=== PATIENT | male | born 1970 | race Caucasian/White ===

== ENCOUNTER → 2017-06-30 | Outpatient (POV) | payer OTHER, SELFPAY | PROVIDERS: Family Provider Emergency Medicine; PCP Emergency Medicine; Visit Provider Specialist | DX: G40.909 Epilepsy, unspecified, not intractable, without status epilepticus (principal); J32.4 Chronic pansinusitis; Z22.322 Carrier or suspected carrier of Methicillin resistant Staphylococcus aureus; S32.049S Unspecified fracture of fourth lumbar vertebra, sequela | CPT/HCPCS: 95819 ==

== ENCOUNTER → 2018-04-11 08:36 | Outpatient (CLI) | payer OTHER, SELFPAY ==
[2018-04-15 10:57] LABS: Levetiracetam (Keppra) 13.9 ug/mL (10.0-40.0)
== END ==
PROVIDERS: Visit Provider Nurse Practitioner Family
DX: G40.909 Epilepsy, unspecified, not intractable, without status epilepticus (principal)
CPT/HCPCS: 36415; 80177

== ENCOUNTER 2021-03-04 12:09 | Emergency (ER) | payer BC, SELFPAY ==
[2021-03-04 12:40] VITALS: BP 142/93; PULSE 89; RESP 19; TEMP 36.9; O2SAT 100; BMI 40.0
--- NOTE | 2021-03-04 12:42 | XR_ITS ---
PROCEDURE INFORMATION: Exam: XR Lumbosacral Spine Exam date and time: 03/04/2021 12:42 PM Age: 50 years old Clinical indication: Injury or trauma; Fall; Blunt trauma (contusions or hematomas); Additional info: Fell down stairs TECHNIQUE: Imaging protocol: XR of the lumbosacral spine. Views: 2 or 3 views. COMPARISON: No relevant prior studies available. FINDINGS: Bones/joints: There is an approximately 50% compression deformity of L4 present. The lumbar spine demonstrates mild degenerative changes at multiple levels. Mild compression deformity of the superior endplates of T12 and L1 are present, ages are indeterminate. The facet joints demonstrate mild degenerative hypertrophy and sclerosis. Soft tissues: Unremarkable. Gastrointestinal tract: A large amount of stool is noted throughout the colon. IMPRESSION: 1. There is an approximately 50% compression deformity of L4 present. 2. The lumbar spine demonstrates mild degenerative changes at multiple levels. 3. Mild compression deformity of the superior endplates of T12 and L1 are present, ages are indeterminate. 4. A large amount of stool is noted throughout the colon.
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
[2021-03-04 14:19] VITALS: BP 142/93; PULSE 89; RESP 19; TEMP 36.9; O2SAT 100
== END 2021-03-04 14:37 | disposition home or self-care (01) ==
PROVIDERS: Emergency Provider Nurse Practitioner; PCP Emergency Medicine
DX: M54.5 Low back pain (principal); W10.9XXA Fall (on) (from) unspecified stairs and steps, initial encounter; Y92.019 Unspecified place in single-family (private) house as the place of occurrence of the external cause
CPT/HCPCS: 72100; 96372; 99202; G0463

== ENCOUNTER 2021-10-29 09:39 | Emergency (ER) | payer SELFPAY ==
--- NOTE | 2021-10-29 10:42 | HMH.EDUTC ---
[facility] [place] Clinical Impression: Viral syndrome Sinusitis Qualifiers: Sinusitis location: unspecified location Chronicity: acute Recurrence: non-recurrent Qualified Code(s): J01.90 - Acute sinusitis, unspecified Disposition: Home, Self-Care Condition on Discharge: Good Instructions: DI for Sinusitis, DI for Viral Syndrome Additional Instructions: Drink plenty of fluids. Take tylenol or ibuprofen for pain or fever. Take the medications as directed. Follow up with your regular doctor. GO TO THE ER FOR ANY WORSENING SYMPTOMS He refuses a covid-19 test. I encourage you to get tested for covid-19, but it is your choice to not to. His work excuse needs to apply to for 10/26/2021 also. This is the same episode of sickness. Prescriptions: Amoxicillin/Potassium Clav [Amox-Clav 875-125 mg Tablet] 1 tab PO BID #20 tab Transmission Status: Received by [facility] Benzonatate [Benzonatate 100mg cap] 100 mg PO TIDP PRN #30 cap PRN Reason: Cough Transmission Status: Received by [facility] methylPREDNISolone [Medrol] 4 mg PO DIRECTED 6 Days #21 packet Transmission Status: Received by [facility] Referrals: Brooks Duke MD [Primary Care Provider] - Forms: Work/School Release Time of Disposition: 11:01 Medical Decision Making - Medical Records Medical records reviewed: No: I reviewed the patient's medical records. - Hemal Inquiry Pt receiving controlled substance: No Vital Signs: 10/29/21 10:44 10/29/21 11:13 Temperature 99.2 F 99.2 F Temperature Source Oral Pulse Rate 97 H Pulse Rate [Left] 97 H Respiratory Rate 18 18 Blood Pressure 157/99 H Blood Pressure [Right Arm] 157/99 H Blood Pressure Mean [Right Arm] 118 02 Sat by Pulse Oximetry 97 - Lab Data Lab results reviewed: Yes: I reviewed the patient's lab results. [facility] [place] - General Stated complaint: body aches,headache,sore throat,cough Time Seen by Provider: 10/29/21 10:42 - History of Present Illness Provider Complaint: He states that for the past 3 days he has had sore throat, sinus congestion, body aches, chills and he has felt bad. He refuses any covid or flu testing. He states that he gets this same symptoms every year at this time and he has to take antibiotics to get better. - Related Data Previous Rx's Medication Instructions Recorded Cyclobenzaprine HCl [Flexeril 10mg 10 mg PO TID PRN #15 tab 03/04/21 tablet] Etodolac 200 mg PO Q8HP PRN #20 cap 03/04/21 levetiracetam 500 mg 1,000 mg PO BID #360 tab NS 03/26/21 tablet,extended release 24 hr Amoxicillin/Potassium Clav 1 tab PO BID #20 tab 10/29/21 [Amox-Clav 875-125 mg Tablet] Benzonatate [Benzonatate 100mg 100 mg PO TIDP PRN #30 cap 10/29/21 cap] methylPREDNISolone [Medrol] 4 mg PO DIRECTED 6 Days #21 10/29/21 packet Allergies Allergy/AdvReac Type Severity Reaction Status Date / Time No Known Allergies Allergy Verified 03/27/21 07:36 [facility] History - Hepatitis A Screen Attestation statement:: This patient has been screened for Hepatitis A risk factors. I have reviewed the patient's past medical history: Yes Medical History: Reports:: MRSA, Seizures Denies:: Cancer, Diabetes Mellitus Type 1, Diabetes Mellitus Type 2 Other Surgeries: Yes: No Previous Surgery, Colonoscopy, Other Amputation: No Fractures: No Comment: eye-bilateral, ear - Social History Smoking Status: Current every day smoker Tobacco Type: cigarettes # Packs/Day (cigarettes): 1 #Yrs smoked (if former smoker): 28 Alcohol Intake: never Alcohol Intake Frequency:: a few times a month Substance Use Type: denies use Occupational Status: other Housing: house Household Members: family Family Hx:: Cancer, Coronary Artery Disease, Diabetes, Heart Attack, Stroke, Hypertension ROS Obtained: Yes All systems reviewed & no additional complaints - Constitutional Constitutional: Reports as per HPI - Eyes
[2021-10-29 10:44] VITALS: BP 157/99; PULSE 97; RESP 18; TEMP 37.3; O2SAT 97; BMI 41.1
[2021-10-29 11:13] VITALS: BP 157/99; PULSE 97; RESP 18; TEMP 37.3
== END 2021-10-29 11:14 | disposition home or self-care (01) ==
PROVIDERS: Emergency Provider Nurse Practitioner Family; PCP Emergency Medicine
DX: B34.9 Viral infection, unspecified (principal); J01.90 Acute sinusitis, unspecified; J02.9 Acute pharyngitis, unspecified; M79.10 Myalgia, unspecified site; G40.909 Epilepsy, unspecified, not intractable, without status epilepticus; F17.210 Nicotine dependence, cigarettes, uncomplicated; Z79.52 Long term (current) use of systemic steroids; Z79.899 Other long term (current) drug therapy; Z86.14 Personal history of Methicillin resistant Staphylococcus aureus infection; Z87.898 Personal history of other specified conditions; Z82.49 Family history of ischemic heart disease and other diseases of the circulatory system; Z80.9 Family history of malignant neoplasm, unspecified; Z83.3 Family history of diabetes mellitus
CPT/HCPCS: 99213; G0463

== ENCOUNTER → 2022-04-04 14:36 | Outpatient (CLI) | payer BC, SELFPAY | PROVIDERS: PCP Emergency Medicine; Visit Provider Specialist | DX: G47.33 Obstructive sleep apnea (adult) (pediatric) (principal); R09.02 Hypoxemia; R06.83 Snoring; G40.909 Epilepsy, unspecified, not intractable, without status epilepticus | CPT/HCPCS: G0399 ==

== ENCOUNTER 2022-06-19 13:07 | Emergency (ER) | payer BC, SELFPAY ==
[2022-06-19 13:26] VITALS: BP 147/93; PULSE 70; RESP 18; TEMP 36.8; O2SAT 95; BMI 41.3
--- NOTE | 2022-06-19 14:05 | EXP.UTC ---
Discharge Plan Disposition Patient Disposition: Hospice - Medical Facility Condition: Good Prescriptions Prescriptions: New cyclobenzaprine 10 mg Tablet 10 mg PO BID PRN (Reason: Muscle Spasm) Qty: 20 0RF methylprednisolone 4 mg Tablets,Dose Pack 4 mg PO DIRECTED Qty: 21 0RF No Action levetiracetam 500 mg tablet extended release 24 hr 1,000 mg PO BID Qty: 360 3RF Rx Instructions: Take two tablets twice daily. cyclobenzaprine 10 MG tablet 10 mg PO TID PRN (Reason: Muscle Spasm) Qty: 15 0RF etodolac 200 MG capsule 200 mg PO Q8HP PRN (Reason: Moderate Pain) Qty: 20 0RF benzonatate 100 MG capsule 100 mg PO TIDP PRN (Reason: Cough) Qty: 30 0RF Referrals Follow up/Referrals: Brooks Duke MD [Primary Care Provider] - See instructions Activity Restrictions/Add. Instructions Additional Instructions/Restrictions: Go home and rest. It would be best if you rested tomorrow too. No heavy lifting. No twisting. Take the oral medications as directed. The muscle relaxer (cyclobenzaprine--Flexeril) will make you drowsy, so don't drive or operate heavy machinery after taking it. Follow up with your regular doctor. GO TO THE ER FOR ANY WORSENING SYMPTOMS OR CONCERN, ESPECIALLY BOWEL OR BLADDER ISSUES, SADDLE AREA NUMBNESS, FEVER, ETC Clinical Impressions Clinical Impression: Strain of thoracic back region Stand Alone Forms Stand Alone Forms: Work/School Release Instructions Patient Instructions: Cyclobenzaprine, DI for Thoracic Back Pain, Thoracic Back Pain Discharge ED Provider: Osman Matta [facility] General Stated complaint: Possible pulled chest muscle radiating pain Mode of Arrival: Ambulatory Source of Information: Patient Limitations: No Limitations Time Seen by Provider: 06/19/22 13:53 Description of Symptoms (Recalled from Triage Doc. by RN): pt c/o thoractic pain from lifting HEENT Symptoms (Recalled from RN notes): No Resp Symptoms (Recalled from RN notes): No Skin Symptoms (Recalled from RN notes): No MS Symptoms (Recalled from RN notes): Yes Functional Status (Recalled from RN notes): na History of Present Illness Provider Complaint: He states that for the past 2 days he has had right sided thoracic back pain. He states that it began hurting after he was lifting and moving some heavy things at home. Related Data Previous Rx's Medication Instructions Recorded cyclobenzaprine 10 mg tablet 10 mg PO TID PRN Muscle Spasm #15 03/04/21 tabs etodolac 200 mg capsule 200 mg PO Q8HP PRN Moderate Pain 03/04/21 #20 caps benzonatate 100 mg capsule 100 mg PO TIDP PRN Cough #30 caps 10/29/21 levetiracetam 500 mg 1,000 mg PO BID seizures #360 tabs 03/25/22 tablet,extended release 24 hr cyclobenzaprine 10 mg tablet 10 mg PO BID PRN Muscle Spasm #20 06/19/22 tabs methylprednisolone 4 mg tablets in 4 mg PO DIRECTED #21 tabs 06/19/22 a dose pack Allergies Allergy/AdvReac Type Severity Reaction Status Date / Time No Known Allergies Allergy Verified 04/24/22 14:31 Worker's Comp Is this a Worker's Comp case?: No PFSH PFSH Medical History MRSA (methicillin resistant staph aureus) culture positive Surgical History H/O colonoscopy Family History Other Cancer Coronary artery disease Diabetes Heart attack Hypertension Stroke Social History Smoking Status: Current every day smoker tobacco type: cigarettes packs per day: 1 second hand exposure: No alcohol intake: never counseling provided: none substance use type: denies use current occupational status: other Travel in the last 8 weeks: None household members: family housing: house ROS Obtained: Yes All systems reviewed & no additional complaints except a
[2022-06-19 14:37] VITALS: BP 140/89; PULSE 74; RESP 17; TEMP 36.8; O2SAT 96
== END 2022-06-19 14:38 | disposition hospice, inpatient (51) ==
PROVIDERS: Emergency Provider Nurse Practitioner Family; PCP Emergency Medicine
DX: S29.012A Strain of muscle and tendon of back wall of thorax, initial encounter (principal)
CPT/HCPCS: 99212; G0463

== ENCOUNTER → 2023-03-18 14:24 | Outpatient (CLI) | payer BC, SELFPAY ==
[2023-03-18 16:34] LABS: Chol/HDL Ratio 6.8 (1-3.5); Cholesterol 162 mg/dl (140-200); HDL Cholesterol 24 mg/dl (40-60); Triglycerides 147 mg/dl (30-150); VLDL Cholesterol 29 mg/dL (0-40)
[2023-03-18 16:37] LABS: Alanine Aminotransferase 46 U/L (12-78); Albumin Level 4.1 g/dl (3.5-5.0); Albumin/Globulin Ratio 1.6 (1.1-1.8); Alkaline Phosphatase 87 U/L (38-126); Anion Gap 9.4 mEq/L (5-15); Aspartate Amino Transferase 55 U/L (17-59); Bilirubin,Total 0.9 mg/dl (0.2-1.3); Blood Urea Nitrogen 14 mg/dl (9-20); Calcium 8.8 mg/dl (8.4-10.2); Carbon Dioxide 23 mmol/L (22.0-30.0); Chloride 113 mmol/L (98-107); Estimated Glomerular Filt Rate 102 ml/min (>60); GFR (African American) 123 ML/MIN (>60); Globulin 2.5 g/dL (1.3-3.2); Glucose 99 mg/dl (74-100); Potassium 4.4 mmoL/L (3.5-5.1); Sodium 141 mmol/L (136-145); Total Protein,Serum 6.6 g/dl (6.3-8.2)
[2023-03-18 16:45] LABS: Direct LDL Cholesterol 109.47 mg/dL (100-129)
[2023-03-18 17:07] LABS: Thyroid Stimulating Hormone 1.56 uIU/mL (0.465-4.68)
== END ==
PROVIDERS: PCP Nurse Practitioner Family; Visit Provider Nurse Practitioner Family
DX: Z00.00 Encounter for general adult medical examination without abnormal findings (principal); R53.83 Other fatigue; E66.9 Obesity, unspecified; Z68.41 Body mass index [BMI] 40.0-44.9, adult; Z79.899 Other long term (current) drug therapy
CPT/HCPCS: 36415; 80053; 80061; 84443

== ENCOUNTER 2023-06-20 15:12 | Emergency (ER) | payer BC, SELFPAY ==
[2023-06-20 15:35] VITALS: BP 137/86; PULSE 81; RESP 19; TEMP 36.7; O2SAT 97; BMI 40.0
--- NOTE | 2023-06-20 16:07 | EXP.UTC ---
Discharge Plan Disposition Patient Disposition: Home, Self-Care Condition: Good Prescriptions Prescriptions: New azithromycin [Zithromax Z-Aniceto] 250 mg tablet See Rx Instructions .ROUTE .COMPLEX 5 Days Qty: 6 0RF Rx Instructions: For 250 mg dose pack: take 500 mg today (day 1), then 250 mg for 4 days (days 2-5) benzonatate 100 mg capsule 100 mg PO TID PRN (Reason: cough) Qty: 30 0RF methylprednisolone [Medrol (Aniceto)] 4 mg tablets,dose pack See Rx Instructions .Route .COMPLEX 6 Days Qty: 21 0RF Rx Instructions: taper pack; No Action levetiracetam 500 mg tablet extended release 24 hr 1,000 mg PO BID Qty: 360 3RF Rx Instructions: Take two tablets twice daily. Referrals Follow up/Referrals: Brooks Duke MD [Primary Care Provider] - See instructions Activity Restrictions/Add. Instructions Additional Instructions/Restrictions: *Monitor Temp, Over the counter Motrin or Tylenol as directed/as needed Tylenol every 4 hours and Motrin every 6 hours (as long as your family doctor has told you that you can take it) for fever or pain. and straight to ER if unable to lower temp less than 101.0 after medication given *Warm salt water gargles may help to soothe the throat *Throat Lozenges? *Warm fluids like tea with honey may help to soothe the throat? *Sleep elevated *Humidifier/Vaporizer Take medication as prescribed Follow up IMMEDIATELY for new or worsening symptoms or no Noticeable improvement over the next 48-72 hours. 911 for difficulty breathing or swallowing Clinical Impressions Clinical Impression: Bronchitis Sinusitis Qualifiers: Sinusitis location: unspecified location Chronicity: unspecified Qualified Code(s): J32.9 - Chronic sinusitis, unspecified Stand Alone Forms Stand Alone Forms: Work/School Release Instructions Patient Instructions: DI for Sinusitis, Sinusitis, Acute Bronchitis [place]charge [place] Provider[place] Thais [place] [facility] [place] General Stated complaint: sore throat, lung pain, cough, h/a Mode of Arrival: Ambulatory Source of Information: Patient Limitations: No Limitations Time Seen by Provider: 06/20/23 16:07 Description of Symptoms (Recalled from Triage Doc. by RN): PATIENT C/O CHEST CONGESTION, DRY COUGH, AND SCRATCHY THROAT X 2 DAYS HEENT Symptoms (Recalled from RN notes): Yes Resp Symptoms (Recalled from RN notes): Yes Skin Symptoms (Recalled from RN notes): No MS Symptoms (Recalled from RN notes): No Functional Status (Recalled from RN notes): WNL History of Present Illness Provider Complaint: Patient states that he has been having sinus congestion and pressure, pressure behind his eyes, scratchy throat and chest congestion with cough for several days States that today he was not feeling any better so he came in to get checked out Related Data Previous Rx's Medication Instructions Recorded levetiracetam 500 mg 1,000 mg PO BID seizures #360 tabs 04/21/23 tablet,extended release 24 hr azithromycin 250 mg tablet See Rx Instructions PO .COMPLEX 5 06/20/23 (Zithromax Z-Aniceto) days #6 tabs benzonatate 100 mg capsule 100 mg PO TID PRN cough #30 caps 06/20/23 methylprednisolone 4 mg tablets in See Rx Instructions .Route 06/20/23 a dose pack (Medrol (Aniceto)) .COMPLEX 6 days #21 tabs Allergies Allergy/AdvReac Type Severity Reaction Status Date / Time No Known Allergies Allergy Verified 04/21/23 13:49 Worker's Comp Is this a Worker's Comp case?: No [facility] Disclaimer: The information contained in this section may have been updated after the patient was seen, as this information can be updated by other users. Medical History MRSA (methicillin resistant staph aureus) culture positive Surgical History H/O colonoscopy Family History Other Cance
[2023-06-20 16:15] VITALS: BP 137/86; PULSE 81; RESP 19; TEMP 36.7; O2SAT 97
== END 2023-06-20 16:21 | disposition home or self-care (01) ==
PROVIDERS: Emergency Provider Nurse Practitioner; PCP Emergency Medicine
DX: J20.9 Acute bronchitis, unspecified (principal); J01.90 Acute sinusitis, unspecified; F17.210 Nicotine dependence, cigarettes, uncomplicated
CPT/HCPCS: 99212; 99214; G0463

== ENCOUNTER → 2023-07-25 09:49 | Outpatient (CLI) | payer BC, SELFPAY | LOC: RT 09:50 | PROVIDERS: PCP Nurse Practitioner Family; Visit Provider Nurse Practitioner Family | DX: Z00.00 Encounter for general adult medical examination without abnormal findings (principal); R42 Dizziness and giddiness | CPT/HCPCS: 93225; 93226 ==

== ENCOUNTER → 2023-07-30 14:37 | Outpatient (CLI) | payer BC, SELFPAY ==
--- NOTE | 2023-07-30 | CA_ITS ---
APPROVED REPORT EXAM: Comprehensive 2D, Doppler, and color-flow Echocardiogram Jewel Bearing Driller: Ronit Mota CRT Ht: 6 ft 0 in Wt: 294lbs BSA: 2.51 BP: 134/76 mmHg Indications: Shortness of Breath, BERRY, Smoker 2D Dimensions Left Atrium 4.59 cm LVEF (Garcia's) 53.30 % LVOT 2.09 cm (M/F) 1.5-2.5 LV Volume 138.70 mL EF AP4 57.60 % EF AP2 45.7 % EF BP 53.3 % GL Strain -16.2 % M-Mode Dimensions RVDd 3.72 cm (0.9-2.6) LVDd 5.36 cm (3.5-5.7) Ao Diam 4.64 cm (2.0-3.7) LVDs 3.89 cm (3.5-5.7) IVSd 0.86 cm (0.6-1.1) PWd 0.82 cm (0.6-1.1) EF (Teich) 52.80% FS 27.40% EDV (Teich) 138.90 mL TAPSE 2.04 (<1.7) ESV (Teich) 65.50 mL LV Diastology E Decel Time 219 (160-240 msec) E/A Ratio 0.87 MED E' 5.6 (>= 7 cm/sec) MED A' 7.90 cm/s E'/MED E' Ratio 12.54 (<= 14) LAT E' 9.1 (>= 10 cm/sec) LAT A' 7.30 cm/s E/LAT E' Ratio 7.71 (<= 14) Aortic Valve AoV Peak Raymond. 150.0 (50-130 cm/s) AO Peak GR. 9.00 mmHg Mitral Valve MV E Max Raymond. 70.0 (40-130 cm/s) MV A Velocity 81.0 (40-130 cm/s) E/A Ratio 0.87 MV Decel. Time 219 (160-240 ms) Tricuspid Valve TR P. Velocity 273.00 cm/s RAP Estimate 10.00 mmHg RVSP 39.80 mmHg Left Ventricle The left ventricle is normal size. The left ventricular systolic function is normal. The left ventricular ejection fraction is within the normal range. There is increased LV wall thickness. There is normal LV segmental wall motion. The left ventricular diastolic function is normal. LVEF is 55%. Right Ventricle The right ventricle is not very well-visualized, but grossly appears normal in size and function. Atria The left atrium size is normal. The right atrium size is normal. There is no Doppler evidence of interatrial shunt. Aortic Valve The aortic valve opens well. There is no aortic valvular stenosis. No aortic regurgitation is present. Mitral Valve The mitral valve leaflets are mildly thickened. No evidence of mitral valve stenosis. Trace mitral regurgitation. Tricuspid Valve The tricuspid valve leaflets are thin and pliable Trace tricuspid regurgitation. RVSP is 30 mmHg + RA pressure. Pulmonic Valve The pulmonary valve is normal in structure. Mild pulmonic regurgitation. Great Vessels The aortic root is normal in size. The ascending aorta is borderline dilated, measuring 3.7 cm in diameter. The IVC is not well-visualized. Pericardium There is no pericardial effusion. Other Information Study Quality: Technically Difficult Conclusion Technically difficult study due to poor acoustic windows. Grossly, normal biventricular systolic function. No significant valvular stenosis or regurgitation. RVSP 30 mmHg + RA pressure. Electronically signed by : Carri Sanford MD 08/03/2023 19:49:30
== END ==
PROVIDERS: PCP Nurse Practitioner Family; Visit Provider Nurse Practitioner Family
DX: R06.02 Shortness of breath (principal)
CPT/HCPCS: 93306

== ENCOUNTER 2024-03-11 08:10 | Emergency (ER) | payer BC, SELFPAY ==
[2024-03-11 08:20] VITALS: BP 140/86; PULSE 53; RESP 20; TEMP 36.8; O2SAT 98; BMI 40.0
--- NOTE | 2024-03-11 08:22 | ED_ITS ---
Discharge Plan Disposition Patient Disposition: Home, Self-Care Condition: Good Prescriptions Prescriptions: New methylprednisolone 4 mg Tablets,Dose Pack 4 mg PO DIRECTED 6 Days Qty: 21 0RF Rx Instructions: Take 1 pack as directed for 6 days No Action levetiracetam 500 mg tablet extended release 24 hr 1,000 mg PO BID Qty: 360 3RF Rx Instructions: Take two tablets twice daily. Referrals Follow up/Referrals: Viktoria Salter APRN [Primary Care Provider] - See instructions Activity Restrictions/Add. Instructions Additional Instructions/Restrictions: Rest the extremity. Take the medication as directed. Follow up with Dr. Holloway (orthopedics).I put in a referral but you need to call his office and schedule an appointment. Follow up with your regular doctor. GO TO THE ER FOR ANY WORSENING SYMPTOMS Clinical Impressions Clinical Impression: Tendinopathy of left shoulder Stand Alone Forms Stand Alone Forms: Work/School Release Instructions Patient Instructions: Shoulder Tendinopathy, DI for Shoulder Tendinopathy Discharge ED Provider: Osman Matta [facility] General Stated complaint: left shoulder pain Time Seen by Provider: 03/11/24 08:22 History of Present Illness Provider Complaint: He states that for the past 2 weeks he has had left shoulder pain that is worse when he tries to raise his arm over his head. He also has left wrist pain with certain movements. He denies any injury but his symptoms did start after he had to work very hard moving some things. He denies any chest pain. Related Data Previous Rx's Medication Instructions Recorded levetiracetam 500 mg 1,000 mg (2 x 500 mg) PO BID 10/30/23 tablet,extended release 24 hr seizures #360 tabs methylprednisolone 4 mg tablets in 4 mg PO DIRECTED 6 days #21 tabs 03/11/24 a dose pack Allergies Allergy/AdvReac Type Severity Reaction Status Date / Time No Known Allergies Allergy Verified 10/30/23 15:53 [facility] Disclaimer: The information contained in this section may have been updated after the patient was seen, as this information can be updated by other users. Medical History (Updated 03/11/24 @ 09:00 by Osman Matta APRN) Hyperlipidemia Seizure MRSA (methicillin resistant staph aureus) culture positive Surgical History H/O colonoscopy Family History Other Cancer Coronary artery disease Diabetes Heart attack Hypertension Seizure Stroke Social History Smoking Status: Current every day smoker tobacco type: cigarettes packs per day: 1 second hand exposure: No alcohol intake: never counseling provided: none substance use type: denies use current occupational status: other Travel in the last 8 weeks: None household members: family housing: house ROS Obtained: Yes All systems reviewed & no additional complaints except as documented Constitutional Constitutional: Denies chills and Denies fever(s) Eyes Eyes: Denies eye discharge ENT Ears, Nose, Mouth, and Throat: Denies dizziness, Denies otalgia, Denies neck pain and Denies sore throat Cardiovascular Cardiovascular: Denies chest pain Respiratory Respiratory: Denies shortness of breath, Denies chest congestion, Denies cough, Denies stridor and Denies wheezing Gastrointestinal Gastrointestingal: Denies nausea or vomiting Musculoskeletal Musculoskeletal: Reports as per HPI, Denies back pain and Denies neck pain Integumentary/Breasts Skin/Breast: Denies rash Neurologic Neurologic: Denies dizziness and Denies paresthesias Allergic/Immunologic Allergic/Immunologic: Denies wheezing Physical Exam General General appearance: alert and in no apparent distress Head Head exam: atraumatic, normocephalic and normal inspection Eye Eye exam: Present normal appearance, PERRL and EOMI ENT ENT exam: Present normal exam, normal oropharynx, mucous membranes moist, TM's normal bilaterally and normal external ear exam Neck Neck exam: Present normal inspection, full ROM and trachea midline; Absent meningismus or lymphadenopathy Chest Chest inspection: Present normal inspection and symmetric chest wall rise; Absent tenderness Respiratory Respiratory exam: Present normal lung sounds bilaterally; Absent respiratory distress Cardiovascular Cardiovascular exam: Present regular rate and normal rhythm; Absent JVD Abdominal Exam Abdominal exam: Present soft and normal bowel sounds; Absent distention, tenderness or guarding Extremities Exam Extremities exam: Present normal capillary refill; Absent calf tenderness Expanded Upper Extremity Exam Left: Shoulder exam: Absent full ROM, tenderness, swelling, abrasion, laceration, ecchymosis, deformity, crepitus, dislocation, erythema or tenderness over AC joint Arm exam: Present normal inspection and full ROM; Absent tenderness Elbow exam: Present normal inspection and full ROM; Absent tenderness, pain w/ pronation/supination or tenderness over radial head Forearm/Wrist exam: Present normal inspection and full ROM; Absent tenderness, swelling, abrasion, laceration, ecchymosis, deformity, crepitus, dislocation, erythema, tenderness over anatomical snuff box or pain with axial thumb loading Hand exam: Present normal inspection and full ROM; Absent tenderness, swelling, abrasion, laceration, skin avulsion, ecchymosis, deformity, crepitus, dislocation, erythema, amputation, nail avulsion or subungual hematoma Neuromotor exam: Normal wrist extension, thumb opposition, thumb IP flexion, thumb adduction and fingers 2-5 abduction Neurosensory exam: Normal radial nerve, ulnar nerve and median nerve Vascular exam: Normal capillary refill, radial pulse and ulnar pulse Back Exam Back exam: Present normal inspection; Absent tenderness Neurological Exam Neurological exam: Present alert and oriented X3 Psychiatric Psychiatric exam: Present normal affect and normal mood Skin Skin exam: Present warm, dry, intact and normal color Lymphatic Lymphatic Findings: no adenopathy Medical Decision Making Hemal Inquiry Pt receiving controlled substance: No
--- NOTE | 2024-03-11 08:24 | XR_ITS ---
FINAL REPORT CLINICAL HISTORY: pain COMPARISON: None FINDINGS: AP, oblique, and lateral views of the left wrist were obtained. There is no prior exam for comparison. There is no acute fracture or dislocation. There is a well-corticated calcification in the dorsal wrist, likely related to a remote fracture. The joint spaces are preserved. The soft tissues are normal. IMPRESSION: No acute osseous abnormality of the left wrist. If pain persists, MR is recommended. Well-corticated calcification in the dorsal wrist, likely a remote fracture fragment. Reviewed, Interpreted and Dictated by Magdalena Seals MD Transcribed by Saskia Gordillo Authenticated and [facility]
--- NOTE | 2024-03-11 08:24 | XR_ITS ---
FINAL REPORT CLINICAL HISTORY: pain COMPARISON: None FINDINGS: 2 views of the left shoulder were obtained. There is no prior exam for comparison. There is no fracture or dislocation. There is mild degenerative change of the acromioclavicular and glenohumeral joints. Soft tissues are normal. IMPRESSION: No acute osseous abnormality of the left shoulder. Reviewed, Interpreted and Dictated by Magdalena Seals MD Transcribed by Saskia Gordillo Authenticated and . [facility]
[2024-03-11 09:01] VITALS: BP 140/86; PULSE 53; RESP 20; TEMP 36.8; O2SAT 98
== END 2024-03-11 09:05 | disposition home or self-care (01) ==
PROVIDERS: Emergency Provider Nurse Practitioner Family; PCP Nurse Practitioner Family
DX: M67.912 Unspecified disorder of synovium and tendon, left shoulder (principal); M25.512 Pain in left shoulder
CPT/HCPCS: 73030; 73110; 99212; 99214; G0463

== ENCOUNTER 2024-04-08 14:03 | Emergency (ER) | payer BC, SELFPAY ==
[2024-04-08 14:42] VITALS: BP 143/86; PULSE 58; RESP 18; TEMP 36.6; O2SAT 100; BMI 40.0
--- NOTE | 2024-04-08 14:44 | ED_ITS ---
Discharge Plan Disposition Patient Disposition: Home, Self-Care Condition: Good Prescriptions Prescriptions: New ondansetron 4 mg Tablet,Disintegrating 4 mg PO Q8H PRN (Reason: Nausea) Qty: 12 0RF No Action levetiracetam 500 mg tablet extended release 24 hr 1,000 mg PO BID Qty: 360 3RF Rx Instructions: Take two tablets twice daily. methylprednisolone 4 mg Tablets,Dose Pack 4 mg PO DIRECTED 6 Days Qty: 21 0RF Rx Instructions: Take 1 pack as directed for 6 days Referrals Follow up/Referrals: Viktoria Salter APRN [Primary Care Provider] - See instructions Activity Restrictions/Add. Instructions Additional Instructions/Restrictions: Drink plenty of fluids. Take tylenol or ibuprofen for pain or fever. Follow up with your regular doctor. GO TO THE ER FOR ANY WORSENING SYMPTOMS Clinical Impressions Clinical Impression: Acute viral syndrome Stand Alone Forms Stand Alone Forms: Work/School Release Print Language Print Language: German Discharge ED Provider: Osman Matta [facility] General Stated complaint: nausea, vomiting, diarrhea Time Seen by Provider: 04/08/24 14:44 Related Data Previous Rx's ?Medication ?Instructions ?Recorded levetiracetam 500 mg 1,000 mg (2 x 500 mg) PO BID 10/30/23 tablet,extended release 24 hr seizures #360 tabs methylprednisolone 4 mg tablets in 4 mg PO DIRECTED 6 days #21 tabs 03/11/24 a dose pack ondansetron 4 mg disintegrating 4 mg PO Q8H PRN Nausea #12 tabs 04/08/24 tablet Allergies Allergy/AdvReac Type Severity Reaction Status Date / Time No Known Allergies Allergy Verified 10/30/23 15:53 [facility] Disclaimer: The information contained in this section may have been updated after the patient was seen, as this information can be updated by other users. Medical History (Updated 04/08/24 @ 15:23 by Osman Matta APRN) Hyperlipidemia Seizure MRSA (methicillin resistant staph aureus) culture positive Surgical History H/O colonoscopy Family History Other Cancer Coronary artery disease Diabetes Heart attack Hypertension Seizure Stroke Social History Smoking Status: Current every day smoker tobacco type: cigarettes packs per day: 1 second hand exposure: No alcohol intake: never counseling provided: none substance use type: denies use current occupational status: other Travel in the last 8 weeks: None household members: family housing: house ROS Obtained: Yes All systems reviewed & no additional complaints except as documented Constitutional Constitutional: Reports chills and Reports fever(s) Eyes Eyes: Denies eye discharge ENT Ears, Nose, Mouth, and Throat: Reports as per HPI Cardiovascular Cardiovascular: Denies chest pain Respiratory Respiratory: Denies chest congestion and Reports cough Gastrointestinal Gastrointestingal: Reports nausea; Denies abdominal pain, constipation, cramping, diarrhea or vomiting Musculoskeletal Musculoskeletal: Denies arthralgias Integumentary/Breasts Skin/Breast: Denies rash Neurologic Neurologic: Denies paresthesias Physical Exam General General appearance: alert and in no apparent distress Head Head exam: atraumatic, normocephalic and normal inspection Eye Eye exam: Present normal appearance, PERRL and EOMI ENT ENT exam: Present normal exam, normal oropharynx, mucous membranes moist, TM's normal bilaterally and normal external ear exam Neck Neck exam: Present normal inspection, full ROM and trachea midline; Absent meningismus or lymphadenopathy Chest Chest inspection: Present normal inspection and symmetric chest wall rise; Absent tenderness Respiratory Respiratory exam: Present normal lung sounds bilaterally; Absent respiratory distress Cardiovascular Cardiovascular exam: Present regular rate and normal rhythm; Absent JVD Abdominal Exam Abdominal exam: Present soft and normal bowel sounds; Absent distention, tenderness or guarding Extremities Exam Extremities exam: Present normal inspection, full ROM and normal capillary refill; Absent calf tenderness Back Exam Back exam: Present normal inspection; Absent tenderness Neurological Exam Neurological exam: Present alert and oriented X3 Psychiatric Psychiatric exam: Present normal affect and normal mood Skin Skin exam: Present warm, dry, intact and normal color Lymphatic Lymphatic Findings: no adenopathy Medical Decision Making Medical Records Medical records reviewed: No I reviewed the patient's medical records. Hemal Inquiry Pt receiving controlled substance: No
[2024-04-08 15:28] VITALS: BP 143/86; PULSE 58; RESP 18; TEMP 36.6; O2SAT 100
== END 2024-04-08 15:32 | disposition home or self-care (01) ==
PROVIDERS: Emergency Provider Nurse Practitioner Family; PCP Nurse Practitioner Family
DX: R11.2 Nausea with vomiting, unspecified (principal); R19.7 Diarrhea, unspecified; B34.9 Viral infection, unspecified
CPT/HCPCS: 99212; 99214; G0463

== ENCOUNTER 2024-07-05 08:24 | Emergency (ER) | payer OTHER, SELFPAY ==
[2024-07-05 08:37] VITALS: BP 150/100; PULSE 67; RESP 16; TEMP 36.6; O2SAT 99; BMI 41.1
--- NOTE | 2024-07-05 08:41 | ED_ITS ---
Discharge Plan Disposition Patient Disposition: Home, Self-Care Condition: Good Prescriptions Prescriptions: New ondansetron 4 mg tablet,disintegrating 4 mg PO Q8H PRN (Reason: nausea and vomiting) Qty: 10 0RF No Action levetiracetam 500 mg tablet extended release 24 hr 1,000 mg PO BID Qty: 360 3RF Rx Instructions: Take two tablets twice daily. Referrals Follow up/Referrals: Viktoria Salter APRN [Primary Care Provider] - See instructions Activity Restrictions/Add. Instructions Additional Instructions/Restrictions: Drink extra fluids with and between meals. If you have difficulty drinking, try very small amounts of water or suck on ice chips. ? Avoid fruit juices, as these do not replace minerals and can actually increase diarrhea. ? Children and adults can use sports drinks to replenish electrolytes. Younger children and infants should use products formulated for children, like oral rehydration solutions. ? Eat food in small amounts and let your stomach recover. ? Get lots of rest. You may feel tired or weak. ? No greasy or fried foods for the next 24-48 hours BRAT diet Bananas Rice Apples and [place] ? Make sure to drink plenty of liquids ? Return if needed ? Straight to ER if any life threatening symptoms ? Zofran as prescribed ? You was given an outpatient order for diarrhea panel, please collect specimen and bring back to outpatient lab then call back to the [facility] or follow up with family doctor for results ? Follow up with family doctor in the next 48-72 hours if no improvement or any worsening of symptoms Clinical Impressions Clinical Impression: Nausea vomiting and diarrhea Stand Alone Forms Stand Alone Forms: Work/School Release Instructions Patient Instructions: Nausea and Vomiting-Adult, Diarrhea Print Language Print Language: Vietnamese Discharge ED Provider: Thais Torres [facility] [place] HPI General Stated complaint: lightheaded v/d nausea Mode of Arrival: Ambulatory Source of Information: Patient Limitations: No Limitations Time Seen by Provider: 07/05/24 08:43 Description of Symptoms (Recalled from Triage Doc. by RN): Reports nausea, diarrhea, lightheadedness and coughing that started last night. States he just generally does not feel well. HEENT Symptoms (Recalled from RN notes): Yes Resp Symptoms (Recalled from RN notes): No Skin Symptoms (Recalled from RN notes): No MS Symptoms (Recalled from RN notes): Yes Functional Status (Recalled from RN notes): wnl History of Present Illness Provider Complaint: Patient states that he started feeling bad yesterday States he has has a little cough, nausea, vomiting and diarrhea States that he wasnt able to go to work this morning States he felt a little light headed last night after vomited and this morning just didnt feel well so he didnt go to work Related Data Previous Rx's ?Medication ?Instructions ?Recorded levetiracetam 500 mg 1,000 mg (2 x 500 mg) PO BID 05/31/24 tablet,extended release 24 hr seizures #360 tabs ondansetron 4 mg disintegrating 4 mg PO Q8H PRN nausea and 07/05/24 tablet vomiting #10 tabs Allergies Allergy/AdvReac Type Severity Reaction Status Date / Time No Known Allergies Allergy Verified 05/31/24 16:13 Worker's Comp Is this a Worker's Comp case?: No [facility] Disclaimer: The information contained in this section may have been updated after the patient was seen, as this information can be updated by other users. Medical History Hyperlipidemia Seizure MRSA (methicillin resistant staph aureus) culture positive Surgical History H/O colonoscopy Family History Other Cancer Coronary artery disease Diabetes Heart attack Hypertension Seizure Stroke Social History Smoking Status: Current every day smoker tobacco type: cigarettes packs per day: 1 second hand exposure: No alcohol intake: never counseling provided: none substance use type: denies use current occupational status: other Travel in the last 8 weeks: None household members: family housing: house ROS Obtained: Yes All systems reviewed & no additional complaints except as documented and Yes Systems reviewed as appropriate & no additional complaints except as documented Constitutional Constitutional: Reports system reviewed and no additional complaints, except as documented and Reports as per HPI ENT Ears, Nose, Mouth, and Throat: Reports system reviewed and no additional complaints, except as documented and Reports as per HPI Cardiovascular Cardiovascular: Reports system reviewed and no additional complaints, except as documented and Reports as per HPI Respiratory Respiratory: Reports system reviewed and no additional complaints, except as documented, Reports as per HPI, Denies shortness of breath, Denies chest congestion and Reports cough Gastrointestinal Gastrointestingal: Reports system reviewed and no additional complaints, except as documented, as per HPI, diarrhea, nausea and vomiting Physical Exam General General appearance: alert and in no apparent distress ENT ENT exam: Present normal exam, normal oropharynx, mucous membranes moist and TM's normal bilaterally Chest Chest inspection: Present normal inspection and symmetric chest wall rise Respiratory Respiratory exam: Present normal lung sounds bilaterally; Absent respiratory distress or wheezes Cardiovascular Cardiovascular exam: Present regular rate, normal rhythm and normal heart sounds Abdominal Exam Abdominal exam: Present soft and normal bowel sounds; Absent distention, ten derness, guarding or rebound Neurological Exam Neurological exam: Present alert, oriented X3 and normal gait Medical Decision Making Medical Records Screening: Per USPSTF and CDC recommendations, given the prevalence of disease in our region, it is our hospital?s policy to screen for HIV and viral Hepatitis for all patients aged 18 and over and those with ongoing risk factors. Hemal Inquiry Pt receiving controlled substance: No Hemal was queried for this patient: No Vital Signs: 07/05/24 08:37 Temperature 97.8 F Temperature Source Oral Pulse Rate [Radial] 67 Respiratory Rate 16 Blood Pressure [Right Arm] 150/100 H Blood Pressure Mean [Right Arm] 116 Blood Pressure Source [Right Arm] Automatic Cuff Blood Pressure Position [Right Arm] Sitting 02 Sat by Pulse Oximetry 99 Oxygen Delivery Method Room Air
[2024-07-05 08:56] VITALS: BP 142/99; PULSE 67; RESP 16; TEMP 36.6; O2SAT 99
== END 2024-07-05 08:58 | disposition home or self-care (01) ==
PROVIDERS: Emergency Provider Nurse Practitioner; PCP Nurse Practitioner Family
DX: R11.2 Nausea with vomiting, unspecified (principal); R19.7 Diarrhea, unspecified; R42 Dizziness and giddiness; R05.9 Cough, unspecified
CPT/HCPCS: 99212; G0381

== ENCOUNTER 2025-02-01 20:41 | Emergency (ER) | payer OTHER, SELFPAY ==
--- NOTE | 2025-02-01 22:28 | PC.NURSE ---
This RN attempts to call patient for triage. No answer from patient at this time.
[2025-02-01 22:33] VITALS: BP 000/000; PULSE 0; RESP 0; TEMP -17.7; TEMP 0; O2SAT 0
[2025-02-01 22:36] VITALS: RESP 0; O2SAT 0; BMI 42.0
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
--- OUTSIDE RECORDS SUMMARY | 2025-02-01 22:44 | XMS_ITS | Clinical Summary ---
Author Organization [facility] Address [address] [place] [address] Phone Care Team Providers Care Gas Torch Solderer Name Role Phone Brooks Duke MD Primary Care Provider [phone] Allergies No known active allergies Medications levETIRAcetam (KEPPRA) 500 mg Oral Tablet Take 1 Tab by mouth every 12 hours. 30 Tab 05/31/2017 Active Surgical History Surgery Date Site/Laterality Comments EYE SURGERY Social History Tobacco Use Types Packs/Day Years Used Date Smoking Tobacco: Every Day Cigarettes Smokeless Tobacco: Never Tobacco Cessation:Ready to Q uit: No Alcohol Use Standard Drinks/Week Comments No 0 (1 standard drink = 0.6 oz pur e alcohol) Sex and Gender Information Value Date Recorded Sex Assigned at Not on file Legal Sex Male 11:10 AM EDT Gender Identity Not on file Sexual Orientation Not on file Obstetrics History Last Filed Vital Signs Vital Sign Reading Time Taken Comments Blood Pressure 108/47 05/31/2017 1:51 PM EDT Pulse 84 05/31/2017 1:51 PM EDT Temperature 36.7 C (98.1 F) 05/31/2017 11:11 AM EDT Respiratory Rate 23 05/31/2017 1:51 PM EDT Oxygen Saturation 97% 05/31/2017 1:51 PM EDT Inhaled Oxygen Concentration - - Weight 136.1 kg (300 lb) 05/31/2017 11:11 AM EDT Height 180.3 cm (5' 11 ) 05/31/2017 11:11 AM EDT Body Mass Index 41.84 05/31/2017 11:11 AM EDT Plan of Treatment Health Maintenance Due Date Last Done Comments Annual Wellness Exam 1973 DTaP/TDaP/Td (1 - Tdap) 1989 Hepatitis B Vaccine (1 of 3 - 19+ 3-dose series) 1989 Cologuard 2015 Colon Cancer Screening 2015 Colonoscopy 2015 FIT 2015 Sigmoidoscopy 2015 Virtual Colonography 2015 Pneumococcal Vaccine 50+ (1 of 1 - PCV) 2020 Zoster (1 of 2) 2020 COVID-19 Vaccine (1 - 2023-2 5 season) 2024 Influenza Vaccine (Season Ended) 2025 Meningococcal B Vaccine Aged Out No l onger eligible based on patient's age to complete this topic [place] [address] [employer] [facility] Care Teams Gas Torch Solderer Relationship Specialty Start Date End Date Brooks Duke MD [address] [place] [address] PCP - General Emergency Medicine 05/31/17
== END 2025-02-01 22:36 | disposition left against medical advice (07) ==
LOC: ER 22:42
PROVIDERS: Emergency Provider Emergency Medicine; PCP Nurse Practitioner Family
DX: Z53.21 Procedure and treatment not carried out due to patient leaving prior to being seen by health care provider (principal)
CPT/HCPCS: 99211

== ENCOUNTER 2025-02-22 11:48 | Outpatient (CLI) | payer OTHER, SELFPAY ==
[2025-02-22 20:32] LABS: Coronavirus 19, PCR Not Detected (NotDetected); Influenza A, PCR Not Detected (NotDetected); Influenza B, PCR Not Detected (NotDetected)
--- OUTSIDE RECORDS SUMMARY | 2025-02-24 11:50 | XMS_ITS | Clinical Summary ---
Author Organization [facility] Address [address] [place] [address] Phone Care Team Providers Care Clinical Data Abstractor Name Role Phone Brooks Duke MD Primary Care Provider [phone] Allergies No known active allergies Medications levETIRAcetam [...] age to complete this topic Insurance PLAN [employer] [facility] PLAN Care Teams Clinical Data Abstractor Relationship Specialty Start Date End Date Brooks Duke MD [address] [place] [address] PCP - General Emergency Medicine 05/31/17
--- OUTSIDE RECORDS SUMMARY | 2025-02-24 11:50 | XMS_ITS | Data Portability ---
Author Organization [facility] & [facility] Address [address] [place] [phone] Assessment No assessment recorded. Plan of Treatment Reminders Order Date Submit Date Provider Last Modified By Organization Details Last Modified Time Details Appointments None recorded . Lab None recorded . Referral None recorded . Procedures None recorded . Surgeries None recorded . Imaging None recorded . Medication Orders Aptiom 800 mg tablet 023 04/02/20 23 [email or web address] [facility] [id number], [address] [place] [address], [phone], 3 14:19:42 Patient TargetsNo targets recorded. Patient InstructionsNo instructions recorded. Reason for Referral None Reported. Problems Name Problem SNOMED Code Status Onset Date Resolution Date Notes Provider Name and Address Organization Details Recorded Time Seizure disorder 700144012 Active 023 Carey priest [facility] & [place] 08:15:26 Problem Notes None recorded. Procedures Surgical History Date Name Laterality Status Provider Name and Address Organization Details Recorded Time Repair eardrum structures completed Carey PANIAGUA [facility] & [place] 04/02/2023 13:25:41 Imaging Results None recorded. Procedure [...] in Arterial blood by Pulse oximetry Systolic And Diastolic Provider Name and Address Organization Details Last Updated DateTime 3 182.88 cm 39.4 kg/m2 325610. 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 Family History Relationship Description Onset Age of this Age Resolved Age Notes LastModified by Organization Details LastModified Time Father Family member ldalla Not available 2022 08:17:13 Mother Family member ldalla Not available 2022 08:17:13 Medical History Condition Response Arthritis Y Seizures/Epilepsy Y Reflux/GERD Y Heart Attack ([place]) Y Hyperlipidemia Y Obstructive Sleep Apnea Y Past Encounters Encounter ID Performer Location Encounter Start Date Encounter Closed Date Diagnosis/Indication Diagnosis SNOMED-CT Code Diagnosis ICD10 Code Diagnosis Note [id number] Bernarda Ramos DO [facility] [address] [place] [address] 04/02/2023 13:03:23 04/02/2023 14:01:41 Seizure disorder 115131023 G40.909 History of a childhood seizure disorder [...] Rush Member ID Guarantor Name 06/07/2023 1 [facility] [id number] Jhoan Carballo [id number] Jhoan Carballo Notes Date Note Type Note [...] sugar was 91. He was taken to [facility] in [place]. His ER evaluation was negative other than [...] feel. Bernarda Ramos, DO [address], [place], [address], [place] - [facility] - [place] & [place] 04/02/2023 16:34:09
== END 2025-02-22 23:59 | disposition home or self-care (01) ==
LOC: LAB.DROPOF 02-24 11:49
PROVIDERS: PCP Nurse Practitioner Family; Visit Provider Nurse Practitioner Family
DX: R52 Pain, unspecified (principal); J02.9 Acute pharyngitis, unspecified
CPT/HCPCS: 87631

== ENCOUNTER 2025-07-06 18:36 | Emergency (ER) | payer OTHER, SELFPAY ==
[2025-07-06 18:45] VITALS: BP 202/115; PULSE 83; RESP 17; TEMP 36.7; O2SAT 98; BMI 41.8
[2025-07-06 19:00] VITALS: BP 142/93
--- NOTE | 2025-07-06 19:02 | ED_ITS ---
Discharge Plan Disposition Patient Disposition: Home, Self-Care Condition: Good Prescriptions Prescriptions: New fluticasone propionate [Flonase Allergy Relief] 50 mcg/actuation spray,suspension 1 spray intranasal BID PRN (Reason: nasal congestion) Qty: 16 0RF Rx Instructions: administer into each nostril doxycycline hyclate 100 mg capsule 100 mg PO BID 10 Days Qty: 20 0RF No Action levetiracetam 500 mg tablet extended release 24 hr See Rx Instructions .ROUTE .COMPLEX Qty: 360 0RF Dose Instruction: Take 2 tablets by mouth twice daily for seizures. Rx Instructions: Take 2 tablets by mouth twice daily for seizures. Referrals Follow up/Referrals: Viktoria Salter APRN [Primary Care Provider, Medical] - See instructions Activity Restrictions/Add. Instructions Additional Instructions/Restrictions: Take the doxycycline as prescribed for 10 days. Use the flonase daily. Follow-up with ENT as scheduled on Friday. Return to the ER if you have worsening facial swelling, if you are unable to move your eyes or have pain with eye movements or if you develop pus from your eyes. Clinical Impressions Clinical Impression: Cellulitis of face Stand Alone Forms Stand Alone Forms: Work/School Release Print Language Print Language: Cypriot Discharge ED Provider: Yolie Comer General Adult HPI General Chief complaint: PAIN Stated complaint: congestion,SOA Time Seen by Provider: 07/06/25 19:02 Mode of Arrival: Family Vehicle Source of Information: Patient, Significant Other and Medical Record Description of Symptoms (Recalled from ER Triage Doc. by RN): Pt c/o elevated BP and R sided facial swelling. States he has been on steriods and oral abx 2x in the past month but sxs always return. States his R nare is completly stopped up . He does have a hx of sinus issues but not to this degree. Takes a daily saline nasal spray and Keppra. Denies any hx of elevated BP. History of Present Illness HPI narrative: Patient is a 54-year-old gentleman with a past medical history of seizures who is on daily Keppra who presented to the emergency department with right sided facial swelling. Patient states that he has had chronic sinusitis for about a month. Patient states that he has been on 2 different antibiotics as well as steroids. Patient states that he started having right-sided facial swelling and has had some difficulties breathing out of his right nostril. Patient states that he has not had any fevers or purulent drainage from his nose. Patient has had clear drainage. Patient states that he has ENT follow-up on Friday. Patient denies any headache vision changes or difficulties moving his eyes. Patient has not had any drainage from his eyes. Related Data Previous Rx's ?Medication ?Instructions ?Recorded levetiracetam 500 mg See Rx Instructions .Route 1 tablet,extended release 24 hr .COMPLEX #360 tabs doxycycline hyclate 100 mg capsule 100 mg PO BID 10 da ys #20 caps 07/06/25 fluticasone propionate 50 1 spray intranasal BID PRN n renée 07/06/25 mcg/actuation nasal congestion #16 grams spray,suspension (Flonase Allergy Relief) Allergies Allergy/AdvReac Type Severity Reaction Status Date / Time No Known Allergies Allergy Verified 07/06/25 18:07 [facility] Disclaimer: The information contained in this section may have been updated after the patient was seen, as this information can be updated by other users. Medical History Sinusitis Hyperlipidemia Seizure MRSA (methicillin resistant staph aureus) culture positive Surgical History H/O colonoscopy Family History Other Cancer Coronary artery disease Diabetes Heart attack Hypertension Seizure Stroke Social History Smoking Status: Never smoker second hand exposure: No alcohol intake: never counseling provided: none substance use type: denies use current occupational status: other Travel in the last 8 weeks?: None household members: family housing: house Have you lived/traveled outside [place] in past 30 days?: No Contact w/someone who lives/traveled outside US past 30 days?: No Exposure to someone with infectious disease in past 14 days?: No Do you have a fever (greater than 100.4 F or 38 C)?: No Have you tested positive for COVID-19?: No Exposed to someone with COVID-19 in past 14 days?: No Do you have a sore throat?: No Do you have a cough?: No Do you have any weakness?: No Do you have any diarrhea?: No Are you experiencing any unusual bleeding?: No Do you have any muscle aches/pain?: No Do you have any abdominal pain?: No Are you experiencing loss of taste or smell?: No Other Medical History Have you received the Flu Vaccine for this season: No Have you received the Pneumonia Vaccine: No ROS Obtained: Yes All systems reviewed & no additional complaints except as documented and Yes Systems reviewed as appropriate & no additional complaints except as documented Physical Exam General General appearance: alert and in no apparent distress Head Head exam: atraumatic, normocephalic, normal inspection and other (Facial swelling lateral to nasal bridge on the right, no palpable fluctuance, mild swelling under right eye ) Eye Eye exam: Present normal appearance, PERRL and EOMI; Absent scleral icterus ENT ENT exam: Present normal exam and normal external ear exam Neck Neck exam: Present normal inspection and full ROM Chest Chest inspection: Present normal inspection and symmetric chest wall rise Respiratory Respiratory exam: Present normal lung sounds bilaterally; Absent respiratory distress or wheezes Cardiovascular Cardiovascular exam: Present regular rate, normal rhythm and normal heart sounds Abdominal Exam Abdominal exam: Present soft and distention; Absent tenderness, guarding or rebound Extremities Exam Extremities exam: Present normal inspection and full ROM Back Exam Back exam: Present normal inspection and full ROM Neurological Exam Neurological exam: Present alert and oriented X3 Psychiatric Psychiatric exam: Present normal affect and normal mood Skin Skin exam: Present warm and dry Medical Decision Making Medical Records Medical records reviewed: Yes I reviewed the patient's medical records. Screening: Per USPSTF and CDC recommendations, given the prevalence of disease in our region, it is our hospital?s policy to screen for HIV and viral Hepatitis for all patients aged 18 and over and those with ongoing risk factors. Hemal Inquiry Pt receiving controlled substance: No Vital Signs: 07/06/25 18:45 07/06/25 19:00 07/06/25 19:26 Temperature 98.1 F 98.8 F Temperature Source Oral Pulse Rate 72 Pulse Rate [Right] 83 Respiratory Rate 17 18 Blood Pressure 142/93 H 149/93 H Blood Pressure [Right Arm] 202/115 H Blood Pressure Mean [Right Arm] 144 Blood Pressure Source Automatic Cuff Blood Pressure Source [Right Arm] Automatic Cuff 02 Sat by Pulse Oximetry 98 98 Oxygen Delivery Method Room Air Room Air 07/06/25 21:25 Temperature 98.3 F Temperature Source Oral Pulse Rate 84 Pulse Rate [Right] Respiratory Rate 18 Blood Pressure 139/86 Blood Pressure [Right Arm] Blood Pressure Mean [Right Arm] Blood Pressure Source Blood Pressure Source [Right Arm] 02 Sat by Pulse Oximetry Oxygen Delivery Method Room Air Lab Data Lab results reviewed: Yes I reviewed the patient's lab results. Lab Results 07/06/25 19:21: WBC 7.8, RBC 4.88, Hgb 15.0, Hct 43.4, MCV 88.9, MCH 30.7, MCHC 34.6, RDW 14.1, Plt Count 229, MPV 8.8, Neut % (Auto) 62.9, Lymph % (Auto) 23.7, [place] % (Auto) 9.4 H, Eos % (Auto) 2.6, Baso % (Auto) 0.9, Neut # (Auto) 4.9, Lymph # (Auto) 1.8, [place] # (Auto) 0.7, Eos # (Auto) 0.2, Baso # (Auto) 0.1, S odium 135 L, Potassium 4.0, Chloride 105, Carbon Dioxide 28, Anion Gap 6.0, BUN 13, Creatinine 0.80, Estimated Creat Clear 112, Estimated GFR 101, Est GFR ( Amer) 122, Glucose 89, Calcium 8.9, Total Bilirubin 1.1, AST 50, ALT 36, Alkaline Phosphatase 86, C-Reactive Protein 22.1 H, Total Protein 6.6, Albumin 4.1, Globulin 2.5, Albumin/Globulin Ratio 1.6 07/06/25 19:21 07/06/25 19:21 Orders (Tests/Meds): ED MEDICATIONS Discontinued Medications Generic Name Dose Route Start Last Admin Trade Name Freq PRN Reason Stop Dose Admin Doxycycline Hyclate 100 mg 07/06/25 21:15 07/06/25 21:24 Doxycycline Hycl 100 Mg Tablet PO 07/06/25 21:16 100 mg ONCE ONE Administration ORDERS Category Date Time Status CT facial bones w con Stat Cat Scan 07/06/25 19:10 Completed CBC w/Auto Diff [Complete Blood Count Auto Diff] Stat Lab 07/06/25 19:21 Completed CMP [Comprehensive Metabolic Panel] Stat Lab 07/06/25 19:21 Completed CRP [C-Reactive Protein] Stat Lab 07/06/25 19:21 Completed Medical Decision Narrative: Patient is a 54-year-old gentleman with a past medical history of seizures on daily Keppra who presented to the emergency department with concern for right- sided facial swelling and redness. On arrival, patient was hemodynamically stable with unremarkable vital signs. Differential includes but not limited to: Acute on chronic sinusitis, facial abscess, facial cellulitis, nasal polyp, amongst others. On exam, patient did have inflamed nasal polyp in the right nostril. Patient had some mild erythema lateral to the nasal bridge with some erythema. No obvious fluctuance. Patient had intact extraocular movements. ET scan of the face was obtained as well as labs. Labs reviewed and interpreted by myself: CBC showed no leukocytosis, hemoglobin is stable. CMP is unremarkable. CT face was obtained which showed some right sided facial cellulitis no evidence of abscess. At this time, I did feel the patient warranted additional antibiotics. Patient was sent home with doxycycline as well as intranasal steroids. Patient already has follow-up with ENT as scheduled next week. Return precautions were discussed and patient was otherwise discharged home in stable condition. Critical Care Critical Care Time Critical Care Time: No
--- OUTSIDE RECORDS SUMMARY | 2025-07-06 19:05 | XMS_ITS | Clinical Summary ---
Author Organization [facility] Address [address] [place] [address] Phone Care Team Providers Care Social Media Executive Name Role Phone Brooks Duke MD Primary Care Provider [phone] Allergies No known active allergies Medications levETIRAcetam [...] on file Sexual Orientation Not on file Last Filed Vital Signs Vital Sign Reading [...] of 2) 2020 COVID-19 Vaccine (1 - 2024-2 6 season) 2025 Influenza Vaccine (#1) 2025 Meningococcal B Vaccine Aged Out No l onger eligible based on patient's age to complete this topic Insurance [employer] [facility] PLAN Care Teams Social Media Executive Relationship Specialty Start Date End Date Brooks Duke MD [address] [place] [address] PCP - General Emergency Medicine 05/31/17
--- NOTE | 2025-07-06 19:10 | CT_ITS ---
PROCEDURE INFORMATION: Exam: CT Maxillofacial With Contrast Exam date and time: 07/06/2025 8:03 PM Age: 54 years old Clinical indication: Mass, lump, or swelling; Other: Right sided facial; Additional info: Right sided facial swelling TECHNIQUE: Imaging protocol: Computed tomography of the face with contrast. Radiation optimization: All CT scans at this facility use at least one of these dose optimization techniques: automated exposure control; mA and/or kV adjustment per patient size (includes targeted exams where dose is matched to clinical indication); or iterative reconstruction. Contrast material: ISOVUE; Contrast volume: 75 ml; Contrast route: IV; COMPARISON: No relevant prior studies available. FINDINGS: Paranasal sinuses: No air-fluid levels. Orbital cavities: Orbits are normal. Globes are unremarkable. Bones: No acute fracture. Soft tissues: Right facial and nasal soft tissue swelling and inflammatory changes with postcontrast enhancement. No organized rim enhancing fluid collection to suggest abscess. IMPRESSION: Right facial and nasal soft tissue swelling and inflammatory changes with postcontrast enhancement compatible with cellulitis. No organized rim enhancing fluid collection to suggest abscess.
[2025-07-06 19:26] VITALS: BP 149/93; PULSE 72; RESP 18; TEMP 37.1; O2SAT 98
[2025-07-06 19:28] LABS: Hematocrit 43.4 % (42.0-52.0); Hemoglobin 15.0 g/dL (14.1-18.0); Immature Granulocytes % 0.5 %; Mean Corpuscular HGB Conc 34.6 g/dL (31.8-35.4); Mean Corpuscular Hemoglobin 30.7 pg (27.0-31.2); Mean Corpuscular Volume 88.9 fl (80-94); Nucleated Red Blood Cells % 0 %; Platelet Count 229 K/mm3 (142-424); Red Blood Count 4.88 M/mm3 (4.60-6.20); Red Cell Distribution Width-SD 45.2 fL; White Blood Count 7.8 K/mm3 (4.8-10.8)
[2025-07-06 19:45] LABS: Alanine Aminotransferase 36 U/L (12-78); Albumin Level 4.1 g/dl (3.5-5.0); Albumin/Globulin Ratio 1.6 (1.1-1.8); Alkaline Phosphatase 86 U/L (38-126); Anion Gap 6.0 mEq/L (5-15); Aspartate Amino Transferase 50 U/L (17-59); Bilirubin,Total 1.1 mg/dl (0.2-1.3); Blood Urea Nitrogen 13 mg/dl (9-20); Calcium 8.9 mg/dl (8.4-10.2); Carbon Dioxide 28 mmol/L (22.0-30.0); Chloride 105 mmol/L (98-107); Creatinine Clearance Estimated 112 mL/min (50-200); Creatinine,Serum 0.80 mg/dl (0.66-1.25); Estimated Glomerular Filt Rate 101 ml/min (>60); GFR (African American) 122 ML/MIN (>60); Globulin 2.5 g/dL (1.3-3.2); Glucose 89 mg/dl (74-100); Potassium 4.0 mmoL/L (3.5-5.1); Sodium 135 mmol/L (136-145); Total Protein,Serum 6.6 g/dl (6.3-8.2)
[2025-07-06 19:50] LABS: C-Reactive Protein 22.1 mg/L (0-4)
[2025-07-06] MEDS: DOXYCYCLINE HYCL 100 MG TABLET PO (21:24)
[2025-07-06 21:25] VITALS: BP 139/86; PULSE 84; RESP 18; TEMP 36.8; O2SAT 97
== END 2025-07-06 21:21 | disposition home or self-care (01) ==
PROVIDERS: Emergency Provider Student in an Organized Health Care Education/Training Program; PCP Nurse Practitioner Family
DX: L03.211 Cellulitis of face (principal); E78.5 Hyperlipidemia, unspecified
CPT/HCPCS: 70487; 80053; 85025; 86140; 99284; 99285

== ENCOUNTER 2025-08-01 15:49 | Outpatient (CLI) | payer OTHER, SELFPAY ==
--- NOTE | 2025-08-01 15:52 | MR_ITS ---
PROCEDURE INFORMATION: Exam: MR Face Without and With Contrast Exam date and time: 08/01/2025 4:34 PM Age: 54 years old Clinical indication: Mass, lump, or swelling; Other: Forehead; Additional info: Mass of paranasal sinus TECHNIQUE: Imaging protocol: Magnetic resonance imaging of the face without and with contrast. Contrast material: ISOVUE; Contrast volume: 28 ml; Contrast route: IV; COMPARISON: CT FACIAL BONES W CON 07/06/2025 8:03 PM FINDINGS: Paranasal sinuses: Moderate left maxillary sinus mucosal thickening with aerated secretions. Moderate to severe left anterior ethmoid sinus mucosal thickening/opacification with T1/T2 isointense signal. There is cortical thinning/dehiscence of the left fovea ethmoidalis, which is possibly contiguous with the anterior cranial fossa (series 8, image 19; series 11, image 19). Scattered additional mild paranasal sinus mucosal disease. Left frontal maxillary sinus polyp/mucous retention cyst. Orbital cavities: The globes are symmetric in size and contour. Lenses are normally located. The orbital fat is preserved. The optic nerves are unremarkable. No abnormal signal or enhancement. Nasopharynx: Symmetric adenoidal hypertrophy. Pharynx: Visualized portions are unremarkable. Soft tissues: Unremarkable. Bones/joints: The bony orbits are unremarkable. IMPRESSION: 1. Opacification of the left anterior ethmoid sinuses with T1/T2 isointense signal. Cortical thinning/dehiscence of the left cribriform plate, which is possibly contiguous with the anterior cranial fossa. Encephalocele is not excluded. 2. Moderate left maxillary sinus mucosal thickening. Aerated secretions in the left maxillary sinus. Correlate clinically for acute sinusitis.
[2025-08-01] MEDS: GADOTERIDOL INJ 20ML SYRINGE 28 ML IV (17:01)
== END 2025-08-01 23:59 | disposition home or self-care (01) ==
LOC: RAD 15:50
PROVIDERS: PCP Nurse Practitioner Family; Visit Provider Otolaryngology
DX: J34.89 Other specified disorders of nose and nasal sinuses (principal); R93.0 Abnormal findings on diagnostic imaging of skull and head, not elsewhere classified
CPT/HCPCS: 70543; A9576